=== PATIENT | female | born 1970 ===

== ENCOUNTER 2019-11-09 10:55 | Emergency (ER) | payer OTHER ==
--- NOTE | 2019-11-09 11:03 | ED ---
Lower Extremity - HPI Summary HPI Summary: The patient is a 49 y/o F arriving by ambulance to [facility] with a chief complaint of left knee pain onset this morning after sustaining a mechanical fall. She reports she was walking inside when she slipped and fell onto the medial knee. Currently, her pain is rated0 /10 in severity. She denies any decreased ROM, swelling, weakness, or numbness in the knee. She had ice placed on it prior to arrival. She hasnt attempted to walk on the E yet. Previous injury to left knee after a fall many years ago. PMHx: depression, anxiety, COPD, sleep apnea, HIV with meds (undetectable viral load). Started at [facility] 11/04/19 and has not since used tobacco, alcohol, or crack cocaine but has previously used. Medications reviewed. Allergies noted. - History of Current Complaint Stated Complaint: FALL KNEE PAIN Time Seen by Provider: 11/09/19 10:57 Hx Obtained From: Patient Mechanism Of Injury: Fall From A Standing Position Onset of Pain: Immediate Onset/Duration: Minutes Severity Initially: Mild Severity Currently: None Pain Intensity: 0 Pain Scale Used: 0-10 Numeric Timing: Lasting Minutes Location: Is Discrete @ - left medial knee Associated Signs And Symptoms: Negative: Swelling, Weakness, Other - numbness, decreased ROM Aggravating Factor(s): Nothing Alleviating Factor(s): Ice Related History: Occupational Injury - left knee fall - Allergies/Home Medications Allergies/Adverse Reactions: Allergies Allergy/AdvReac Type Severity Reaction Status Date / Time aztreonam Allergy Unknown Verified 11/09/19 11:06 Reaction Details PMH/Surg Hx/FS Hx/Imm Hx Respiratory History: Reports: Hx Chronic Obstructive Pulmonary Disease (COPD), Hx Sleep Apnea Psychiatric History: Reports: Hx Anxiety, Hx Depression, Hx Substance Abuse - crack cocaine - Surgical History Surgical History: None Surgery Procedure, Year, and Place: none Infectious Disease History: Yes Infectious Disease History: Reports: Hx Human Immunodeficiency Virus (HIV) - on meds, indectable viral load 11/09/19 - Family History Known Family History: Positive: Diabetes - Social History Alcohol Use: None Hx Substance Use: Yes Substance Use Type: Reports: Cocaine Hx Tobacco Use: Yes Smoking Status (MU): Former Smoker Review of Systems Positive: Myalgia - left knee. Negative: Decreased ROM Negative: Other - swelling of left knee Negative: Weakness, Numbness All Other Systems Reviewed And Are Negative: Yes Physical Exam - Summary Physical Exam Summary: Constitutional: Well-developed, Well-nourished, Alert. (-) Distressed Skin: Warm, Dry HENT: Normocephalic; Atraumatic Eyes: Conjunctiva normal Neck: Musculoskeletal ROM normal neck. (-) JVD, (-) Stridor, (-) Tracheal deviation Cardio: Rhythm regular, rate normal, Heart sounds normal; Intact distal pulses; Radial pulses are 2+ and symmetric. (-) Murmur Pulmonary/Chest wall: Effort normal. (-) Respiratory distress, (-) Wheezes, (-) Rales Abd: Soft, (-) tenderness, (-) Distension, (-) Guarding, (-) Rebound Musculoskeletal: FROM of left knee, No bony tenderness, Patient able to ambulate without difficulty. (-) Edema Lymph: (-) Cervical adenopathy Neuro: Alert, Oriented x3 Psych: Mood and affect Normal Triage Information Reviewed: Yes Vital Signs Reviewed: Yes Procedures - Sedation Patient Received Moderate/Deep Sedation with Procedure: No Lower Extremity Course/Dx - Course Course Of Treatment: Patient is here with left knee pain following a fall. Patient's chronic left knee pain. Patient has no bony tenderness and full range of motion her knee. Patient is able ably. Patient and myself do not think she broke her knee. Patient was discharged with no workup. - Diagnoses Provider Diagnoses: Left knee sprain Discharge ED - Sign-Out/Discharge Documenting (check all that apply): Patient Departure - Patient will be discharged home. - Discharge Plan Condition: Stable Disposition: HOME Patient Education Materials: Knee Sprain (ED) Referrals: Sylvia Vieira RN [Primary Care Provider] - 3 Days Additional Instructions: Please take Ibuprofen or Tylenol for pain as needed. Take care and stay strong during your sobriety. Follow up with your primary care provider if pain continues. Return to the emergency department for any new or worsening symptoms. - Billing Disposition and Condition Condition: STABLE Disposition: Home - Attestation Statements Document Initiated by Scribe: Yes Documenting Scribe: Betty Daigle Provider For Whom Mary Ellen is Documenting (Include Credential): Dr. Davie Hansen MD Scribe Attestation: Betty El scribed for Dr. Davie Hansen MD on 11/13/19 at 1849. Scribe Documentation Reviewed: Yes Provider Attestation: The documentation as recorded by the scribe, Betty Daigle accurately reflects the service I personally performed and the decisions made by me, Dr. Davie Hansen MD Status of Scribe Document: Viewed
[2019-11-09 11:08] VITALS: BP 149/116
== END 2019-11-09 11:22 | disposition home or self-care (01) ==
LOC: ED 10:55
DX: S83.92XA Sprain of unspecified site of left knee, initial encounter (principal); W01.0XXA Fall on same level from slipping, tripping and stumbling without subsequent striking against object, initial encounter; Y92.9 Unspecified place or not applicable; J44.9 Chronic obstructive pulmonary disease, unspecified; F41.9 Anxiety disorder, unspecified; F32.9 Major depressive disorder, single episode, unspecified; Z21 Asymptomatic human immunodeficiency virus [HIV] infection status; Z87.891 Personal history of nicotine dependence; Z79.899 Other long term (current) drug therapy; Z88.1 Allergy status to other antibiotic agents
CPT/HCPCS: 99282